=== PATIENT | male | born 1955 | race Two or more races ===

== ENCOUNTER 2018-09-23 14:17 | Emergency (ER) | payer MEDICAID ==
[~2018-09-23] VITALS: Ht 167.6 cm; Wt 65.8 kg
[~2018-09-23 14:17] MED LIST: VALIUM5 MG ORAL
[2018-09-23] MEDS ORDERED: Ketorolac 30mg Inj IM ONE (14:45)
--- NOTE | 2018-09-23 15:11 | Emergency Room Report ---
History of Present Illness General Chief Complaint: Back Pain-No Injury Source: Patient Present Illness HPI Patient presents with lumbar pain radiating to his left leg since been worsening over the last few days. Is a history of back problems and is post laminectomies x3. He feels muscle spasms at this time. The pain is fairly severe. He is unable to walk standing straight or sit down. The pain is worsened when he moves. Denies any incontinence, change in bowels, ears, chills , oncologic problems, recent trauma, blood thinners or IV drug use. Pain is rated 10/10, aching and worse with movement with muscle cramping. He does complain about some dysuria. There is no hematuria. When this happened several years ago he was able to get a shot which made him feel better. 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 Nursing Documentation: PMH: Agreed; PSxH: Agreed Nursing Documentation-PMH Past Medical History: No History, Except For Hx Hypertension: Yes - blood clot removed from head 1976 Hx Diabetes: Yes Review of Systems All Other Systems: negative except mentioned in HPI Physical Exam Vital Signs Date Time Temp Pulse Resp B/P (MAP) Pulse Ox O2 Delivery O2 Flow Rate FiO2 09/23/18 14:22 81 16 118/79 (92) 95 Room Air Sp02 EP Interpretation: reviewed, normal General Appearance: well appearing, no apparent distress, GCS 15 Head: normocephalic Eyes: bilateral eye normal inspection, bilateral eye PERRL, bilateral eye EOMI ENT: moist mucus membranes Neck: supple Respiratory: lungs clear, normal breath sounds Cardiovascular #1: regular rate, rhythm Cardiovascular #2: 2+ radial (R) Gastrointestinal: normal inspection, normal bowel sounds, non tender, no mass, non-distended Musculoskeletal: decreased range of motion - sitting, but able to and lay down , other - paraspinous muscle spasm, tender - lumbar area Neurologic: alert, oriented x3, motor strength/tone normal, DTRs symmetric, sensory intact, cerebellar normal, normal gait - with back stiffness Psychiatric: mood/affect normal Skin: normal inspection, warm/dry Medical Decision Making Diagnostic Impression: Primary Impression: Low back pain Qualified Codes: M54.42 - Lumbago with sciatica, left side ER Course Presents with worsened back pain with history of laminectomies and sciatica. Differential includes muscle spasm, back strain UTI amongst others. There are no red flag signs or symptoms at this time and imaging is not indicated. Urinalysis will be obtained. The patient be treated with Toradol and Soma. Urinalysis unremarkable. Patient improved and able to lay down and sit with minimal discomfort. Discussed treatment plan with patient. Suggested follow-up with his own doctor and physical therapy. Patient stable for outpatient observation and treatment. Laboratory Tests Test 09/23/18 15:00 Urine Color Pale yellow Urine Appearance Clear Urine pH 7 (4.5-8.0) Urine Specific [place] 1.010 (1.005-1.035) Urine Protein Negative (NEGATIVE) Urine Glucose (UA) Negative (NEGATIVE) Urine Ketones Negative (NEGATIVE) Urine Blood Negative (NEGATIVE) Urine Nitrite Negative (NEGATIVE) Urine Bilirubin Negative (NEGATIVE) Urine Urobilinogen Normal MG/DL (0.0-1.0) Urine Leukocyte Esterase 2+ (NEGATIVE) H Urine RBC 0 /HPF (0 - 0) Urine WBC 0-2 /HPF (0 - 0) Urine Squamous Epithelial Cells None /LPF (NONE/OCC) Urine Bacteria None /HPF (NONE) Last Vital Signs Date Time Temp Pulse Resp B/P (MAP) Pulse Ox O2 Delivery O2 Flow Rate FiO2 09/23/18 16:40 98.0 67 16 118/79 95 Room Air Status: improved Disposition: HOME, SELF-CARE Condition: Improved Scripts Ibuprofen* (MOTRIN*) 600 Mg Tablet 600 MG ORAL Q6H PRN for For Pain, #20 TAB 0 Refills Prov: Talha Mendoza MD 09/23/18 Methocarbamol* (ROBAXIN*) 500 Mg Tablet 500 MG PO TID, #10 TAB 0 Refills Prov: Talha Mendoza MD 09/23/18 Tramadol Hcl* (ULTRAM*) 50 Mg Tablet 50 MG ORAL Q6H PRN for For Pain, #10 TAB 0 Refills Prov: Talha Mendoza MD 09/23/18 Referrals: [facility],REFERR[facility] (PCP) Talha Mendoza MD Sep 23, 2018 15:11
[2018-09-23 15:25] VITALS: BP 118/79
[2018-09-23 15:36] LABS: APPEARANCE,URINE CLEAR; BILIRUBIN, URINE NEGATIVE (NEGATIVE); COLOR,URINE PALE YELLOW; GLUCOSE, URINE (UA) NEGATIVE (NEGATIVE); KETONES,URINE NEGATIVE (NEGATIVE); LEUKOCYTE ESTERASE ,URINE 2+ (NEGATIVE); NITRITE,URINE NEGATIVE (NEGATIVE); PH,URINE 7 (4.5-8.0); PROTEIN,URINE NEGATIVE (NEGATIVE); UROBILINOGEN,URINE NORMAL MG/DL (0.0-1.0)
[2018-09-23] MEDS ORDERED: ROBAXIN500 MG PO (16:32)
[2018-09-23] MEDS ORDERED: TRAMADOL HCL50 MG ORAL (16:32)
[2018-09-23] MEDS ORDERED: IBUPROFEN600 MG ORAL (16:32)
[2018-09-23 16:40] VITALS: BP 118/79
== END 2018-09-23 16:42 | disposition home or self-care (01) ==
LOC: EMR 15:00
DX: M54.42 Lumbago with sciatica, left side (principal); R30.0 Dysuria; E11.9 Type 2 diabetes mellitus without complications; I10 Essential (primary) hypertension
CPT/HCPCS: 81001; 96372; 99283; J1885